=== PATIENT | female | born 1945 | race Hispanic/Latino ===

== ENCOUNTER 2021-05-01 06:54 | Observation (INO) | payer MEDICARE ==
[2021-04-26 12:08] LABS: BASOPHILS # (AUTO) 0.1 (0.0-0.1); BASOPHILS % 0.6 % (0.0-1.0); EOSINOPHILS # (AUTO) 0.4 (0.0-0.4); EOSINOPHILS % 3.9 % (0.0-6.0); HEMATOCRIT 36.8 % (34.2-44.1); HEMOGLOBIN 11.1 g/dL (12.0-16.0); LYMPHOCYTES # (AUTO) 2.9 (1.0-3.2); LYMPHOCYTES % 27.5 % (18.0-39.1); MEAN CORPUSCULAR HEMOGLOBIN 22.8 pg (28-32); MEAN CORPUSCULAR HGB CONC 30.2 g/dL (31-35); MEAN CORPUSCULAR VOLUME 75.7 fL (81-99); MONOCYTES # (AUTO) 0.8 (0.2-0.8); MONOCYTES % 8.1 % (4.4-11.3); NEUTROPHILS # (AUTO) 6.2 (2.1-6.9); NEUTROPHILS % 59.7 % (38.7-80.0); PLATELET COUNT 348 x10e3/uL (140-360); RED BLOOD COUNT 4.86 x10e6/uL (3.6-5.1)
[2021-04-26 12:28] LABS: ALANINE AMINOTRANSFERASE 11 IU/L (0-55); ALBUMIN 3.5 g/dL (3.5-5.0); ALKALINE PHOSPHATASE 80 IU/L (40-150); ANION GAP 15.9 mmol/L (8-16); BLOOD UREA NITROGEN 14 mg/dL (7-26); BUN/CREATININE RATIO 20 (6-25); CARBON DIOXIDE 26 mmol/L (22-29); CHLORIDE 105 mmol/L (98-107); EST GLOMERULAR FILTRATION RATE > 60 ML/MIN (60-); GLUCOSE 139 mg/dL (74-118); POTASSIUM 3.9 mmol/L (3.5-5.1); SODIUM 143 mmol/L (136-145)
[~2021-05-01] VITALS: Ht 154.9 cm; Wt 60.3 kg
[~2021-05-01 06:54] MED LIST: AMLODIPINE BESYL5 MG PO; ASPIRIN325 MG PO; BYSTOLIC PO; DALIRESP500 MCG PO; DIOVAN160 MG PO; DOCUSATE SODIU100 MG PO; FEROSUL325 MG PO; HYDROCODON-ACE1 EAC9 PO; LEVOTHYROXINE112 MCG PO; LORATADINE10 MG PO; METFORMIN HCL500 MG PO; NEURONTIN400 MG PO; NOVOLOG MI100 UNIT/1 SC; PANTOPRAZOLE SO40 MG PO; PRAVACHOL20 MG PO; TRESIBA100 UNIT/1 SC; VENTOLIN HFA18 GM INH
[2021-05-01] MEDS ORDERED: CEFAZOLIN SOD 1 GM/NS 50ML 100 ML IV ONE (07:52)
[2021-05-01] MEDS ORDERED: BUPIVACAINE HCL 0.5% INJ 30 ML VIAL INJ ONE ×2 (09:49→11:08)
[2021-05-01] MEDS ORDERED: ESTROGENS CONJUGATED VAGINAL CR 45 GM TUBE PV ONE (09:49)
[2021-05-01] MEDS ORDERED: ACETAMINOPHEN 1000 MG/100 ML 100 ML IV ONE (09:49)
[2021-05-01] MEDS ORDERED: BUPIVACAINE HCL 0.5% 10ML MPF VIAL INJ ONE (11:08)
[2021-05-01] MEDS ORDERED: ALBUTEROL SULFATE HFA 8GM INHALATION AEROSOL INH PRN (12:30)
[2021-05-01] MEDS ORDERED: ONDANSETRON HCL INJ 2MG/ML 2ML 2 MG/ML VIAL IV PRN (12:30)
[2021-05-01] MEDS ORDERED: OXYCODONE HCL IR 5 MG TAB PO PRN ×2 (12:30)
[2021-05-01] MEDS ORDERED: DIPHENHYDRAMINE HCL 25 MG CAP PO PRN (12:30)
[2021-05-01] MEDS ORDERED: DEXTROSE 50% SYRINGE 50 ML IV PRN (12:45)
[2021-05-01] MEDS ORDERED: FENTANYL CITRATE/PF 100MCG/2 ML INJ ONE (12:53)
[2021-05-01 16:04] VITALS: BP 127/58
[2021-05-01 16:25] LABS: HEMOGLOBIN 9.4 g/dL (12.0-16.0)
[2021-05-01] MEDS: INSULIN REGULAR, HUMAN 100 UNIT/1 ML 3ML VIAL SQ SCH ×2 (16:26→21:00)
[2021-05-01] MEDS: DOCUSATE SODIUM 100 MG CAP PO SCH (16:55)
[2021-05-01] MEDS: LACTATED RINGER'S 1,000 ML IV SCH ×2 (16:55→21:49)
[2021-05-01] MEDS: VALSARTAN 160 MG TAB PO SCH (16:55)
[2021-05-01] MEDS: GABAPENTIN 400 MG CAP PO SCH ×2 (16:55→21:49)
[2021-05-01] MEDS: METFORMIN HCL 500 MG TAB PO SCH (16:56)
[2021-05-01] MEDS ORDERED: LIDOCAINE HCL 2% LOCAL INJ 5 ML SDV VIAL INJ ONE (17:43)
[2021-05-01] MEDS ORDERED: SUCCINYLCHOLINE CHLORIDE 20 MG/ML 10ML VIAL ONE (17:43)
[2021-05-01] MEDS ORDERED: ONDANSETRON HCL INJ 2MG/ML 2ML 2 MG/ML VIAL ONE (17:43)
[2021-05-01] MEDS ORDERED: EPHEDRINE SULFATE INJ 50 MG/ML VIAL ONE (17:43)
[2021-05-01] MEDS ORDERED: SEVOFLURANE INHAL SOLN 250 ML PEN BTL ONE (17:43)
[2021-05-01] MEDS ORDERED: PROPOFOL IV EMULSION 10 MG/ML 20 ML VIAL ONE (17:43)
[2021-05-01] MEDS ORDERED: METOCLOPRAMIDE HCL 10 MG/2ML VIAL ONE (17:43)
[2021-05-01] MEDS ORDERED: LIDOCAINE HCL 2% JELLY 5 ML TUBE ONE (17:43)
[2021-05-01] MEDS ORDERED: ETOMIDATE 2 MG/ML 10 ML INJ IV ONE (17:43)
[2021-05-01] MEDS ORDERED: POVIDONE IODINE 0.05% 0.05 % ML PO ONE (17:43)
[2021-05-01] MEDS ORDERED: GLYCOPYRROLATE INJ 0.2 MG/ML VIAL ONE (17:43)
[2021-05-01 18:07] VITALS: BP 127/58
[2021-05-01 18:13] VITALS: BP 127/58
[2021-05-01 20:00] VITALS: BP 155/59
[2021-05-01 20:35] LABS: HEMOGLOBIN 8.9 g/dL (12.0-16.0)
[2021-05-01 21:00] VITALS: BP 155/59
[2021-05-01] MEDS ORDERED: PRAVASTATIN 20 MG TAB PO SCH (21:00)
[2021-05-02 00:48] VITALS: BP 141/61
[2021-05-02 04:00] VITALS: BP 128/52
[2021-05-02] MEDS: LACTATED RINGER'S 1,000 ML IV SCH (05:14)
[2021-05-02] MEDS ORDERED: LEVOTHYROXINE SODIUM 112 MCG TAB PO SCH (06:00)
[2021-05-02] MEDS: INSULIN REGULAR, HUMAN 100 UNIT/1 ML 3ML VIAL SQ SCH (07:30)
[2021-05-02] MEDS ORDERED: HYDROCODON-ACE1 EA11 PO (08:27)
[2021-05-02 08:43] VITALS: BP 151/65
[2021-05-02 08:54] LABS: HEMATOCRIT 27.8 % (34.2-44.1); HEMOGLOBIN 8.4 g/dL (12.0-16.0)
[2021-05-02] MEDS ORDERED: DOCUSATE SODIUM 100 MG CAP PO SCH (09:00)
[2021-05-02] MEDS ORDERED: AMLODIPINE BESYLATE 5 MG TAB PO SCH (09:00)
[2021-05-02] MEDS: VALSARTAN 160 MG TAB PO SCH (09:00)
[2021-05-02] MEDS ORDERED: LORATADINE 10 MG TAB PO SCH (09:00)
[2021-05-02] MEDS ORDERED: PANTOPRAZOLE SOD 40 MG TABEC PO SCH (09:00)
[2021-05-02] MEDS: DOCUSATE SODIUM 100 MG CAP PO SCH (09:00)
[2021-05-02] MEDS: GABAPENTIN 400 MG CAP PO SCH (09:00)
[2021-05-02] MEDS ORDERED: NEBIVOLOL 10 MG TAB PO SCH (09:00)
[2021-05-02] MEDS: METFORMIN HCL 500 MG TAB PO SCH (09:00)
[2021-05-02 09:07] VITALS: BP 151/65
[2021-05-02] MEDS ORDERED: HYDROCODONE/APAP 5MG-325MG TAB PO PRN (10:30)
== END 2021-05-02 11:05 | disposition home or self-care (01) ==
LOC: OR 06:54 → PACU V 12:26 → MED/SURG 15:56
PROVIDERS: ADMIT Obstetrics & Gynecology; ATTEND Obstetrics & Gynecology
DX: N81.3 Complete uterovaginal prolapse (principal); N39.3 Stress incontinence (female) (male); Z88.5 Allergy status to narcotic agent; Z01.810 Encounter for preprocedural cardiovascular examination; Z01.812 Encounter for preprocedural laboratory examination; Z01.818 Encounter for other preprocedural examination; Z20.822 Contact with and (suspected) exposure to COVID-19; E11.9 Type 2 diabetes mellitus without complications; E03.9 Hypothyroidism, unspecified; K21.9 Gastro-esophageal reflux disease without esophagitis; I10 Essential (primary) hypertension; D64.9 Anemia, unspecified; J44.9 Chronic obstructive pulmonary disease, unspecified; Z79.4 Long term (current) use of insulin
CPT/HCPCS: 36415 ×3; 57120; 57288; 71046; 80053; 82948 ×2; 85014 ×2; 85018 ×2; 85025; 93005; C1758; C1781; G0378 ×2; J0131; J0330; J0690; J1817; J2001 ×2; J2405; J2704; J2765; J3010; J7121 ×2; S0164; U0002